=== PATIENT | male | born 1945 | race Caucasian/White ===

== ENCOUNTER 2017-01-15 10:24 | Inpatient (IN) | payer MEDICARE, BC, OTHER ==
[~2017-01-15 10:24] MED LIST: ALBUTEROL1.25 MG/3 INH; ALFUZOSIN HCL E10 MG PO; ANCEF IV; ANUSOL-HC25 MG RC; ASPIR 8181 M1 PO; ASPIRIN81 M1 PO; BACTROBAN15 G1 TP; CENTRUM SILVER1 EAC5 PO; COLACE100 M1 PO; DAILY VITAMIN1 EAC5 PO; FLOMAX0.4 M1 PO; FUROSEMIDE40 M2 PO; GENTAMICIN SUL3.5 GM LEFT EYE; LEVOXYL125 MC1 PO; LISINOPRIL2.5 M1 PO; LOTRIMIN AF12 GM TP; LUBRICANT EYE D10 ML LEFT EYE; MAGNESIUM OXID400 M1 PO; MAGNESIUM OXID420 M1 PO; METOPROLOL TART25 M1 PO; METOPROLOL TART50 M2 PO; MILK OF MAGNESIA PO; PERCOCET 5-3251 EACH PO; PLAVIX75 M1 PO; POTASSIUM CHLO20 ME3 PO; REMERON45 M1 PO; SENOKOT-S TABL1 EACH PO; STOOL SOFTENER100 M3 PO; SYSTANE GEL EYE10 M1; SYSTANE GEL EYE10 M1 LEFT EYE; TOPIRAMATE25 M3 PO; TRAMADOL HCL50 M2 PO; TYLENOL EXTRA500 M1 PO; TYLENOL325 M2 PO; ULTRAM50 M1 PO; UROXATRAL10 M1 PO; XANAX0.25 M1 PO; XARELTO20 M1 PO; ZOCOR40 M1 PO; [UNRECOGNIZED DRUG - OTHER] TOP
[2017-01-16 05:00] LABS: ANION GAP 9 mmol/L (0-20); BLOOD UREA NITROGEN 27 mg/dl (6-24); CALCIUM 8.1 mg/dl (8.5-10.5); CARBON DIOXIDE-VENOUS 28 mmol/L (22-32); CHLORIDE 102 mmol/l (96-110); CREATININE 1.22 mg/dl (0.60-1.30); GLUCOSE 141 mg/dL (70-110); HCT-HEMATOCRIT 37.6 % (36.0-53.5); HGB-HEMOGLOBIN 12.6 gm/dl (13.5-17.0); IMMATURE GRANULOCYTES ABSOLUTE 0.04 tho/cmm (0-0.03); IMMATURE GRANULOCYTES PERCENT 0.3 % (0-0.3); LYMPH % 7.2 % (20-45); LYMPH ABSOLUTE COUNT 0.9 tho/cmm (0.8-4.5); MCH (MEAN CORPUSCULAR HGB) 29.6 pg (28.0-32.0); MCHC MEAN CORPUSCULAR HGB CONC 33.5 % (32.0-36.0); MCV (MEAN CELL VOLUME) 88.3 fl (82.0-96.0); MEAN PLATELET VOLUME 9.4 cmc (9.4-12.4); MONO % 6.2 % (0-12); MONOCYTE ABSOLUTE COUNT 0.8 tho/cmm (0.0-1.2); NEUTROPHIL ABSOLUTE COUNT 10.5 tho/cmm (1.6-8.0); NEUTROPHIL-AUTOMATED 10.5 tho/cmm (1.6-8.0); NEUTROPHILS % 86.3 % (40-80); PLATELET COUNT 239 tho/cmm (150-450); RED BLOOD COUNT 4.26 mil/cmm (4.40-5.70); SODIUM 134 mmol/L (135-145); WHITE BLOOD COUNT 12.2 tho/cmm (4.0-10.0); eGFR VALUE FOR BLACK 68 mL/Min
[2017-01-16 17:30] LABS: HGB-HEMOGLOBIN 12.4 gm/dl (13.5-17.0); PLATELET COUNT 239 tho/cmm (150-450)
[2017-01-16 17:34] LABS: INR 1.6 INR (0.9-1.1); PROTHROMBIN TIME 18.7 SECONDS (9.0-13.6)
[2017-01-16 17:42] LABS: CREATININE 1.28 mg/dl (0.60-1.30); eGFR VALUE FOR BLACK 64 mL/Min
[2017-01-18] MEDS ORDERED: OXYCODONE HCL5 M1 PO (11:34)
[2017-01-18] MEDS ORDERED: TYLENOL325 M2 PO (11:36)
[2017-01-18] MEDS ORDERED: DULCOLAX10 MG PR (11:39)
[2017-01-18] MEDS ORDERED: MILK OF MAGNESIA PO (11:40)
[2017-01-18] MEDS ORDERED: SENOKOT-S TABL1 EACH PO (11:41)
== END 2017-01-18 12:28 | DRG 470 ==
LOC: SHSC 10:24 → ORE 12:44 → PACU 15:05 → 5EA 16:54
PROVIDERS: Internal Medicine; ADMIT Orthopaedic Surgery Sports Medicine
PROC: 0SRD0J9 Replacement of Left Knee Joint with Synthetic Substitute, Cemented, Open Approach (ICD-10-PCS; principal; 2017-01-15)
DX: M17.12 Unilateral primary osteoarthritis, left knee (principal); I48.91 Unspecified atrial fibrillation; I12.9 Hypertensive chronic kidney disease with stage 1 through stage 4 chronic kidney disease, or unspecified chronic kidney disease; M24.562 Contracture, left knee; E03.9 Hypothyroidism, unspecified; Z87.891 Personal history of nicotine dependence; Z79.01 Long term (current) use of anticoagulants; I25.10 Atherosclerotic heart disease of native coronary artery without angina pectoris; K59.00 Constipation, unspecified; Z95.1 Presence of aortocoronary bypass graft; N18.2 Chronic kidney disease, stage 2 (mild)
CPT/HCPCS: C1713; C1776; C9290; J0690; J1170; J1580; J1885; J2270; J3010; J3370